=== PATIENT | male | born 2000 | race Two or more races ===

== ENCOUNTER → 2019-06-24 | Outpatient (CLI) | payer OTHER ==
--- NOTE | 2019-06-24 17:09 | KCIC ---
EXAM: PA, scaphoid lateral and fossa views, right wrist DATE: 06/24/2019 12:00 AM INDICATION: Right wrist pain, evaluate for fracture. COMPARISON: No prior FINDINGS: Transverse fracture through the distal radial metaphysis is seen. Neutral radial tilt. Moderate overlying soft tissue swelling particularly dorsally. In addition there is bowing of the pronator fat pad. IMPRESSION: Transverse distal radial metaphyseal fracture with neutral radial tilt and moderate overlying soft tissue swelling. Electronically signed by: Vik Summers MD (06/24/2019 5:06 PM) [id number]
== END | disposition home or self-care (01) ==
LOC: KCIC 13:36
PROVIDERS: ATTEND Family Medicine
DX: S59.291A Other physeal fracture of lower end of radius, right arm, initial encounter for closed fracture (principal); Y93.66 Activity, soccer; Y92.39 Other specified sports and athletic area as the place of occurrence of the external cause; Y99.8 Other external cause status
CPT/HCPCS: 73110